=== PATIENT | female | born 1965 | race Caucasian/White ===

== ENCOUNTER → 2020-03-24 14:19 | Outpatient (BNVA) | payer MEDICARE, MEDICAID, SELFPAY | PROVIDERS: Family Provider Chiropractor Orthopedic; PCP Chiropractor Orthopedic; Visit Provider Podiatrist Foot & Ankle Surgery | DX: M25.571 Pain in right ankle and joints of right foot (principal) | CPT/HCPCS: 73610 ==

== ENCOUNTER → 2020-05-05 13:25 | Outpatient (BNVA) | payer MEDICARE, MEDICAID, SELFPAY | PROVIDERS: Family Provider Chiropractor Orthopedic; PCP Chiropractor Orthopedic; Visit Provider Podiatrist Foot & Ankle Surgery | DX: M25.579 Pain in unspecified ankle and joints of unspecified foot (principal); S93.491S Sprain of other ligament of right ankle, sequela | CPT/HCPCS: 73610 ==

== ENCOUNTER → 2021-01-21 10:55 | Outpatient (BNVA) | payer MEDICARE, MEDICAID, SELFPAY | PROVIDERS: Family Provider Chiropractor Orthopedic; PCP Chiropractor Orthopedic; Visit Provider Orthopaedic Surgery | DX: S62.009A Unspecified fracture of navicular [scaphoid] bone of unspecified wrist, initial encounter for closed fracture (principal); X58.XXXA Exposure to other specified factors, initial encounter | CPT/HCPCS: 73110 ==

== ENCOUNTER 2021-06-29 10:06 | Outpatient (CLI) | payer MEDICARE, MEDICAID, SELFPAY | END 2021-06-29 10:07 | disposition home or self-care (01) | LOC: SPT 10:07 | PROVIDERS: Family Provider Chiropractor Orthopedic; PCP Chiropractor Orthopedic; Visit Provider Podiatrist Foot & Ankle Surgery | DX: Z46.89 Encounter for fitting and adjustment of other specified devices (principal); M25.571 Pain in right ankle and joints of right foot | CPT/HCPCS: 97760; L4361 ==

== ENCOUNTER 2021-07-22 15:56 | Outpatient (CLI) | payer MEDICARE, MEDICAID, SELFPAY ==
--- NOTE | 2021-07-22 16:02 | MR_ITS ---
WS: [id number] MRI RIGHT ANKLE without CONTRAST. COMPARISON: 07/12/2019 and radiograph 05/05/2020. Multiplanar, multisequence imaging is performed without contrast. No acute marrow edema or fracture. There is a very small amount of subchondral edema along the tibial plafond along with joint space narrowing. Small amount of edema also within the talar dome. No acute fracture. No loose body. There is a small amount of increased signal which can be normal posterior t alofibular ligament. This is new since the prior study and the ligament is slightly thickened. Ligame nt appears intact although there is some increased fluid at the talofibular joint space. Anterior edson ofibular ligament is small caliber but intact. The extent of the soft tissue edema has significantly improved since 07/12/2019. Normal appearance of the peroneus brevis and longus tendons. No split tear or edema. Achilles tendon is normal. Posterior tibialis tendon and flexor digitorum longus and flexor hallucis longus are normal. Small calcaneal spur measures 8 mm. No sinus Tarsi abnormality evident. MR/MR ankle RT wo con* [id number] IMPRESSION: 1. Significant improvement in soft tissue edema surrounding the ankle since . 2. Mild tibiotalar joint space narrowing with a small amount of edema in the t ibial plafond. The talar dome. No loose body. 3. Mild sprain involving the posterior talofibular ligament. 4. No acute fracture.
== END 2021-07-22 15:57 | disposition home or self-care (01) ==
LOC: RADSHAW 17:02
PROVIDERS: PCP Chiropractor Orthopedic; Visit Provider Family Medicine
DX: S93.491A Sprain of other ligament of right ankle, initial encounter (principal); X58.XXXA Exposure to other specified factors, initial encounter
CPT/HCPCS: 73721

== ENCOUNTER → 2025-02-03 12:58 | Outpatient (BNVA) | payer MEDICAID, MEDICARE, SELFPAY | PROVIDERS: PCP Chiropractor Orthopedic; Visit Provider Podiatrist Foot & Ankle Surgery | DX: E11.42 Type 2 diabetes mellitus with diabetic polyneuropathy (principal); L60.3 Nail dystrophy; L84 Corns and callosities; G62.9 Polyneuropathy, unspecified | CPT/HCPCS: 11055; 11721; 99203 ==

== ENCOUNTER → 2025-04-08 13:24 | Outpatient (BNVA) | payer MEDICARE, MEDICAID, SELFPAY | PROVIDERS: PCP Chiropractor Orthopedic; Visit Provider Podiatrist Foot & Ankle Surgery | DX: E11.42 Type 2 diabetes mellitus with diabetic polyneuropathy (principal); L60.3 Nail dystrophy; L84 Corns and callosities; G62.9 Polyneuropathy, unspecified | CPT/HCPCS: 11721; 99213 ==

== ENCOUNTER → 2025-06-12 08:28 | Outpatient (BNVA) | payer MEDICARE, MEDICAID, SELFPAY | PROVIDERS: PCP Chiropractor Orthopedic; Visit Provider Podiatrist Foot & Ankle Surgery | DX: E11.42 Type 2 diabetes mellitus with diabetic polyneuropathy (principal); L60.3 Nail dystrophy; G62.9 Polyneuropathy, unspecified; L84 Corns and callosities | CPT/HCPCS: 11721 ==